=== PATIENT | male | born 1980 | race Caucasian/White ===

== ENCOUNTER 2017-05-30 10:19 | Emergency (ER) | payer SELFPAY ==
[2017-05-30] MEDS ORDERED: HYDROcodone/Acetaminophen 5/325 mg Tablet ONE (10:37)
--- NOTE | 2017-05-30 12:00 | RAD ---
LEFT KNEE FOUR VIEWS: History: Knee pain. Comparison: None. FINDINGS: No acute fracture or malalignment. No significant joint effusion. Enthesopathic changes of the anteri or superior margin of the patella. IMPRESSION: No acute fracture or malalignment. Given patient history, internal derangement is suspected. MRI is r ecommended. POS: [facility]
== END 2017-05-30 11:25 | disposition home or self-care (01) ==
LOC: SCSER 10:19
DX: S83.92XA Sprain of unspecified site of left knee, initial encounter (principal); E11.9 Type 2 diabetes mellitus without complications; F41.0 Panic disorder [episodic paroxysmal anxiety]; F43.10 Post-traumatic stress disorder, unspecified; F32.9 Major depressive disorder, single episode, unspecified; F17.210 Nicotine dependence, cigarettes, uncomplicated; Z79.899 Other long term (current) drug therapy; W17.2XXA Fall into hole, initial encounter

== ENCOUNTER 2017-10-27 05:09 | Emergency (ER) | payer SELFPAY ==
[2017-10-27] MEDS ORDERED: Ketorolac Tromethamine 30 MG/ML VIAL ONE (05:56)
== END 2017-10-27 06:17 | disposition home or self-care (01) ==
LOC: SCSER 05:09
DX: K02.9 Dental caries, unspecified (principal); F41.9 Anxiety disorder, unspecified; F32.9 Major depressive disorder, single episode, unspecified; F17.210 Nicotine dependence, cigarettes, uncomplicated
CPT/HCPCS: 96372; J1885

== ENCOUNTER 2017-10-27 16:50 | Emergency (ER) | payer SELFPAY ==
[2017-10-27] MEDS ORDERED: Promethazine HCl 25 MG/ML VIAL ONE (17:34)
[2017-10-27] MEDS ORDERED: Morphine 5 MG/ML SYRINGE ONE (17:34)
== END 2017-10-27 17:57 | disposition home or self-care (01) ==
LOC: SCSER 16:50
DX: K04.4 Acute apical periodontitis of pulpal origin (principal); F41.9 Anxiety disorder, unspecified; F32.9 Major depressive disorder, single episode, unspecified; F43.10 Post-traumatic stress disorder, unspecified; F41.0 Panic disorder [episodic paroxysmal anxiety]; F17.210 Nicotine dependence, cigarettes, uncomplicated; Z79.899 Other long term (current) drug therapy; Z79.891 Long term (current) use of opiate analgesic
CPT/HCPCS: 96372; J2270; J2550

== ENCOUNTER 2019-12-12 11:50 | Emergency (ER) | payer SELFPAY ==
[2019-12-12 12:39] LABS: #Basophils 0.1 thou/uL (0.0-0.2); #Eosinphils 0.2 thou/uL (0.0-0.7); #Lymphocytes 2.8 thou/uL (1.20-3.40); #Monocytes 0.8 thou/uL (0.11-0.59); #Neutrophils 8.7 thou/uL (1.40-6.50); %Basophils 1.1 % (0.0-1.0); %Eosinophils 1.9 % (0.0-10.0); %Lymphocytes 22.1 % (21.0-51.0); Hemoglobin 18.2 g/dL (14.0-18.0); Mean Corpuscular HGB CONC 35.1 g/dL (32.0-36.0); Mean Corpuscular Hemoglobin 31.5 pg (27.0-31.0); Mean Corpuscular Volume 89.8 fL (78.0-98.0); Mean Platelet Volume 10.2 fL (7.4-10.4); Platelet Count 208 thou/uL (130-400); Red Blood Cell (RBC) Count 5.77 mill/uL (4.70-6.10); White Blood Cell (WBC) Count 12.6 thou/uL (4.8-10.8)
[2019-12-12 13:00] LABS: ALT (SGPT) 20 U/L (8-55); AST (SGOT) 14 U/L (5-34); Albumin 4.9 g/dL (3.5-5.0); Alkaline Phosphatase 112 U/L (40-110); Anion Gap 15 mmol/L (10-20); BUN (Urea Nitrogen) 16 mg/dL (8.9-20.6); Bilirubin, Total 0.4 mg/dL (0.2-1.2); Calc. Creatinine Clearance 0 mL/min (70-130); Calcium 9.9 mg/dL (7.8-10.44); Carbon Dioxide 25 mmol/L (22-29); Chloride 98 mmol/L (98-107); Estimated GFR-MDRD 67; Globulin 3.3 g/dL (2.4-3.5); Glucose 354 mg/dL (70-105); Lipase 63 U/L (8-78); Phosphorus 3.3 mg/dL (2.3-4.7); Potassium 4.2 mmol/L (3.5-5.1); Protein, Total 8.2 g/dL (6.0-8.3); Sodium 134 mmol/L (136-145)
== END 2019-12-12 13:35 | disposition home or self-care (01) ==
LOC: ERS 11:50
DX: E11.9 Type 2 diabetes mellitus without complications (principal); F32.9 Major depressive disorder, single episode, unspecified; F41.0 Panic disorder [episodic paroxysmal anxiety]; F17.210 Nicotine dependence, cigarettes, uncomplicated; Z79.84 Long term (current) use of oral hypoglycemic drugs; Z79.899 Other long term (current) drug therapy
CPT/HCPCS: 36416; 80053; 82010; 83690; 83735; 84100; 85025; 96360

== ENCOUNTER 2020-07-07 06:58 | Emergency (ER) | payer BC ==
[2020-07-07 07:38] LABS: #Basophils 0.1 thou/uL (0.0-0.2); #Eosinphils 1.2 thou/uL (0.0-0.7); #Lymphocytes 1.9 thou/uL (1.20-3.40); #Monocytes 0.9 thou/uL (0.11-0.59); %Basophils 1.1 % (0.0-1.0); %Eosinophils 9.6 % (0.0-10.0); %Monocytes 7.1 % (0.0-10.0); %Neutrophils 66.2 % (42.0-75.0); Hemoglobin 16.9 g/dL (14.0-18.0); Mean Corpuscular Hemoglobin 31.2 pg (27.0-31.0); Mean Corpuscular Volume 91.6 fL (78.0-98.0); Platelet Count 217 thou/uL (130-400); RBC Distribution Width 11.9 % (11.5-14.5); Red Blood Cell (RBC) Count 5.43 mill/uL (4.70-6.10); White Blood Cell (WBC) Count 12.1 thou/uL (4.8-10.8)
[2020-07-07] MEDS ORDERED: Ketorolac Tromethamine 30 MG/ML VIAL ONE (07:53)
[2020-07-07 07:56] LABS: ALT (SGPT) 110 U/L (8-55); AST (SGOT) 100 U/L (5-34); Albumin 4.3 g/dL (3.5-5.0); Alkaline Phosphatase 244 U/L (40-110); Anion Gap 15 mmol/L (10-20); BUN (Urea Nitrogen) 14 mg/dL (8.9-20.6); Bilirubin, Total 1.1 mg/dL (0.2-1.2); Calc. Creatinine Clearance 0 mL/min (70-130); Calcium 9.1 mg/dL (7.8-10.44); Carbon Dioxide 25 mmol/L (22-29); Chloride 102 mmol/L (98-107); Globulin 2.9 g/dL (2.4-3.5); Glucose 261 mg/dL (70-105); Potassium 3.7 mmol/L (3.5-5.1); Protein, Total 7.2 g/dL (6.0-8.3); Sodium 138 mmol/L (136-145)
--- NOTE | 2020-07-07 08:06 | RAD ---
EXAM: Portable chest PROVIDED CLINICAL HISTORY: Cough COMPARISON: 10/24/2016 FINDINGS: Cardiac and mediastinal silhouette is within normal limits. No focal consolidation, pleural fluid or pneumothorax evident. IMPRESSION: No evidence for an acute cardiopulmonary process.
[2020-07-07 09:40] LABS: SARS-CoV-2 NAA Rapid Test Not Detected (NotDetected)
[2020-07-07 09:42] LABS: Bacteria/HPF None Seen HPF (None Seen); Bilirubin Negative (Negative); Blood, Urine Negative (Negative); Clarity Clear (Clear); Glucose, Urine (Dipstick) 70 mg/dL (Negative); Ketone, Urine 80 mg/dL (Negative); Leukocyte Negative Leu/uL (Negative); Nitrite Negative (Negative); Protein, Urine (Dipstick) 30 mg/dL (Neg-Trace); RBC/HPF 0-3 HPF (0-3); Specific Gravity, Urine 1.032 (1.002-1.036); Squamous Epithelial 0-3 HPF (0-3); Urobilinogen 3 mg/dL (Less than 2); WBC/HPF 0-3 HPF (0-3); pH, Urine 6.5 (5.0-9.0)
--- NOTE | 2020-07-07 11:01 | CT ---
CT Abdomen Pelvis W Con: 07/07/2020 10:05 AM CLINICAL INFORMATION: Fever and epigastric abdominal pain. Elevated LFTs COMPARISON: 07/25/2013 TECHNIQUE: Multiple contiguous axial images were obtained and a CT of the abdomen and pelvis with IV contrast. C oronal and sagittal reformats were performed. FINDINGS: Lower Chest: within normal limits. Abdomen: Liver: Diffuse fatty infiltration of the liver. Bile Ducts: Normal caliber. Gallbladder: Removed. Pancreas: within normal limits. Spleen: within normal limits. Adrenals: within normal limits. Kidneys: Stable subtle hypodensities in the left kidney are subcentimeter in size and too small to de finitely characterize but likely represent cysts. Pelvis: Reproductive Organs: No pelvic masses. Ureters: within normal limits. Bladder: within normal limits. Peritoneum: No ascites or free air, no fluid collection. Bowel: Normal caliber. Scattered diverticula in the colon. Mesentery and Retroperitoneum: No enlarged mesenteric or retroperitoneal lymph nodes. Vessels: Normal. Abdominal Wall: within normal limits. Bones: Within normal limits IMPRESSION: 1. Diverticulosis without evidence of acute diverticulitis 2. Likely small left renal cysts 2. Fatty liver
[2020-07-07] MEDS ORDERED: Iopamidol-370 76% 500 ML 1 ML ONE (14:21)
== END 2020-07-07 11:30 | disposition home or self-care (01) ==
LOC: ERS 06:58
DX: E11.9 Type 2 diabetes mellitus without complications (principal); N28.1 Cyst of kidney, acquired; R94.5 Abnormal results of liver function studies; Z20.822 Contact with and (suspected) exposure to COVID-19; F17.210 Nicotine dependence, cigarettes, uncomplicated
CPT/HCPCS: 0240U; 36415; 36416; 71045; 74177; 80053; 81003; 81015; 85025; 87086; 94760; 96374; J1885; Q9967

== ENCOUNTER 2020-07-20 08:38 | Inpatient (IN) | payer BC, OTHER ==
[2020-07-20] MEDS ORDERED: Ondansetron PF 4 MG/2 ML Vial ONE (08:42)
[2020-07-20 08:59] LABS: #Basophils 0.2 thou/uL (0.0-0.2); #Eosinphils 1.4 thou/uL (0.0-0.7); #Monocytes 1.3 thou/uL (0.11-0.59); #Neutrophils 11.5 thou/uL (1.40-6.50); %Basophils 0.9 % (0.0-1.0); %Eosinophils 7.2 % (0.0-10.0); %Lymphocytes 25.7 % (21.0-51.0); %Monocytes 6.7 % (0.0-10.0); %Neutrophils 59.5 % (42.0-75.0); Hemoglobin 17.4 g/dL (14.0-18.0); Mean Corpuscular HGB CONC 33.5 g/dL (32.0-36.0); Mean Corpuscular Hemoglobin 31.3 pg (27.0-31.0); Mean Corpuscular Volume 93.2 fL (78.0-98.0); Mean Platelet Volume 10.1 fL (7.4-10.4); Platelet Count 237 thou/uL (130-400); Red Blood Cell (RBC) Count 5.58 mill/uL (4.70-6.10); White Blood Cell (WBC) Count 19.3 thou/uL (4.8-10.8)
[2020-07-20 09:07] LABS: INR-International Normal Ratio 0.9; Prothrombin Time 12.7 sec (12.0-14.7)
[2020-07-20 09:12] LABS: PTT 18.7 sec (22.9-36.1)
[2020-07-20 09:24] LABS: ALT (SGPT) 47 U/L (8-55); AST (SGOT) 25 U/L (5-34); Albumin 4.5 g/dL (3.5-5.0); Alcohol Less than 10 mg/dL (Less than 10); Alkaline Phosphatase 139 U/L (40-110); Anion Gap 21 mmol/L (10-20); BUN (Urea Nitrogen) 15 mg/dL (8.9-20.6); Bilirubin, Total 0.4 mg/dL (0.2-1.2); Calc. Creatinine Clearance 0 mL/min (70-130); Calcium 9.8 mg/dL (7.8-10.44); Carbon Dioxide 17 mmol/L (22-29); Chloride 100 mmol/L (98-107); Globulin 3.2 g/dL (2.4-3.5); Glucose 330 mg/dL (70-105); Lipase 31 U/L (8-78); Potassium 4.1 mmol/L (3.5-5.1); Protein, Total 7.7 g/dL (6.0-8.3); Sodium 134 mmol/L (136-145)
[2020-07-20] MEDS ORDERED: Dextrose 50% Abboject 50 ML SYRINGE SLOW IVP PRN (09:26)
[2020-07-20] MEDS ORDERED: Dextrose 5% in Water 1,000 ML IV PRN (09:26)
[2020-07-20 09:31] LABS: Bacteria/HPF None Seen HPF (None Seen); Bilirubin Negative (Negative); Blood, Urine 2+ (Negative); Clarity Clear (Clear); Glucose, Urine (Dipstick) >=1000 mg/dL (Negative); Ketone, Urine 10 mg/dL (Negative); Leukocyte Negative Leu/uL (Negative); Nitrite Negative (Negative); Protein, Urine (Dipstick) 10 mg/dL (Neg-Trace); RBC/HPF Greater than 50 HPF (0-3); Specific Gravity, Urine 1.022 (1.002-1.036); Squamous Epithelial 0-3 HPF (0-3); Urobilinogen Normal mg/dL (Less than 2); WBC/HPF 0-3 HPF (0-3); pH, Urine 6.5 (5.0-9.0)
[2020-07-20] MEDS ORDERED: diphenhydrAMINE 25 MG CAP PO PRN (09:35)
[2020-07-20] MEDS ORDERED: diphenhydrAMINE 50 MG/ML VIAL IM PRN (09:35)
[2020-07-20] MEDS ORDERED: Promethazine HCl 25 MG/ML VIAL IM PRN (09:35)
[2020-07-20] MEDS ORDERED: Naloxone HCl 0.4 mg/ml Vial IV PRN (09:35)
[2020-07-20 09:43] LABS: Amphetamine Not Detected (NotDetected); Barbiturates Screen Not Detected (NotDetected); Benzodiazepine Screen Not Detected (NotDetected); Cocaine Metabolite Screen Not Detected (NotDetected); Medtox Control Line Valid? VALID (VALID); Medtox Reader # READER 4; Methadone Not Detected (NotDetected); Methamphetamine Not Detected (NotDetected); Opiate Screen Not Detected (NotDetected); Oxycodone Screen Not Detected (NotDetected); Phencyclidine (PCP) Not Detected (NotDetected); THC/Cannabinoid Screen Detected (NotDetected); Tricyclic Screen Not Detected (NotDetected)
[2020-07-20] MEDS ORDERED: Communication Order-Pharmacy FS SCH (09:45)
[2020-07-20] MEDS ORDERED: HYDROmorphone 0.5 MG/0.5 ML SYRINGE ONE ×2 (10:05→11:20)
[2020-07-20] MEDS ORDERED: Iopamidol-370 76% 500 ML 1 ML ONE (10:36)
[2020-07-20] MEDS ORDERED: Ketamine 50 MG/ML (10ML VIAL) ONE (11:31)
[2020-07-20] MEDS ORDERED: Fentanyl 100 MCG/2 ML VIAL ONE (11:31)
[2020-07-20] MEDS ORDERED: Morphine 2 MG/ML VIAL ONE (12:49)
[2020-07-20] MEDS: HYDROmorphone 10 mg/100 ml CADD IVPB PRN (14:10)
[2020-07-20] MEDS ORDERED: Clindamycin/D5W 900 MG in Premix Bag 1 BAG IVPB SCH (14:45)
[2020-07-20 14:52] VITALS: BMI 30.9
[2020-07-20] MEDS: Ondansetron PF 4 MG/2 ML Vial IVP PRN (16:44)
[2020-07-20] MEDS: Ketorolac Tromethamine 30 MG/ML VIAL IVP SCH ×3 (17:52→22:50)
[2020-07-20] MEDS: Famotidine/PF 20 mg/2ml Vial SLOW IVP SCH (19:37)
[2020-07-20] MEDS: Zolpidem Tartrate 5 MG TAB PO PRN (19:37)
[2020-07-20] MEDS: HumaLOG 300 UNITS/3 ML VIAL SC PRN (19:44)
[2020-07-20] MEDS: diphenhydrAMINE 50 MG/ML VIAL IVP PRN ×2 (20:27→23:49)
[2020-07-21 05:17] LABS: #Basophils 0.1 thou/uL (0.0-0.2); #Eosinphils 0.5 thou/uL (0.0-0.7); #Lymphocytes 2.1 thou/uL (1.20-3.40); #Monocytes 1.4 thou/uL (0.11-0.59); %Basophils 0.4 % (0.0-1.0); %Eosinophils 3.3 % (0.0-10.0); %Lymphocytes 14.9 % (21.0-51.0); %Monocytes 9.8 % (0.0-10.0); %Neutrophils 71.6 % (42.0-75.0); Hemoglobin 15.6 g/dL (14.0-18.0); Mean Corpuscular HGB CONC 32.4 g/dL (32.0-36.0); Mean Corpuscular Hemoglobin 30.4 pg (27.0-31.0); Mean Corpuscular Volume 93.7 fL (78.0-98.0); Platelet Count 168 thou/uL (130-400); Red Blood Cell (RBC) Count 5.15 mill/uL (4.70-6.10)
[2020-07-21 05:28] LABS: Phosphorus 3.2 mg/dL (2.3-4.7)
[2020-07-21 05:32] LABS: Anion Gap 16 mmol/L (10-20); BUN (Urea Nitrogen) 11 mg/dL (8.9-20.6); Calc. Creatinine Clearance 165 mL/min (70-130); Calcium 8.8 mg/dL (7.8-10.44); Carbon Dioxide 18 mmol/L (22-29); Chloride 106 mmol/L (98-107); Glucose 190 mg/dL (70-105); Magnesium 1.7 mg/dL (1.6-2.6); Potassium 3.9 mmol/L (3.5-5.1); Sodium 136 mmol/L (136-145)
[2020-07-21] MEDS: Ketorolac Tromethamine 30 MG/ML VIAL IVP SCH ×4 (05:48→23:12)
[2020-07-21 06:00] LABS: SARS-CoV-2 PCR by NAA Not Detected (NotDetected)
[2020-07-21] MEDS: diphenhydrAMINE 50 MG/ML VIAL IVP PRN ×4 (06:13→21:04)
[2020-07-21] MEDS: Famotidine/PF 20 mg/2ml Vial SLOW IVP SCH ×2 (08:56→19:56)
[2020-07-21] MEDS ORDERED: PROPOFOL 200 MG/20 ML VIAL ONE (09:09)
[2020-07-21] MEDS ORDERED: Ondansetron PF 4 MG/2 ML Vial ONE (09:09)
[2020-07-21] MEDS ORDERED: Lidocaine 1% PF 5 ML VIAL ONE (09:09)
[2020-07-21] MEDS ORDERED: Rocuronium Bromide 10 MG/ML (10ML VIAL) ONE (09:09)
[2020-07-21] MEDS ORDERED: Dexamethasone 20 MG/5 ML VIAL ONE (09:09)
[2020-07-21] MEDS ORDERED: Esmolol 100 MG/10 ML VIAL ONE (09:09)
[2020-07-21] MEDS ORDERED: Ketorolac Tromethamine 30 MG/ML VIAL ONE (09:09)
[2020-07-21] MEDS: Senokot S 8.6-50 MG TAB PO SCH ×2 (09:26→19:55)
[2020-07-21] MEDS: Polyethylene Glycol 3350 17 GM Packet PO SCH (09:26)
[2020-07-21] MEDS ORDERED: Fentanyl 100 MCG/2 ML VIAL ONE ×4 (11:48→15:35)
[2020-07-21] MEDS ORDERED: Levofloxacin 500 mg/D5W 100 ml Premix Bag ONE (12:00)
[2020-07-21] MEDS ORDERED: Clindamycin/D5W 900 mg/50 ml Premix Bag ONE (12:15)
[2020-07-21] MEDS ORDERED: Midazolam HCl 2 mg/2 ml Vial ONE (12:20)
[2020-07-21] MEDS ORDERED: Dexmedetomidine 200 MCG/2 ML VIAL ONE (12:25)
[2020-07-21] MEDS ORDERED: HYDROmorphone 2 MG/ML VIAL ONE (13:18)
[2020-07-21] MEDS ORDERED: SUGAMMADEX SODIUM 200 MG/2 ML VIAL ONE (13:43)
[2020-07-21] MEDS ORDERED: Ondansetron HCl/PF 4 MG/2 ML Vial IVP PRN (14:30)
[2020-07-21] MEDS ORDERED: Promethazine HCl 25 MG/ML VIAL IM PRN (14:30)
[2020-07-21] MEDS ORDERED: HYDROmorphone 2 MG/ML VIAL SLOW IVP PRN (14:30)
[2020-07-21] MEDS ORDERED: Promethazine HCl 25 MG/ML VIAL SLOW IVP PRN (14:30)
[2020-07-21] MEDS ORDERED: HYDROmorphone 0.5 MG/0.5 ML SYRINGE ONE (15:17)
[2020-07-21] MEDS: HYDROmorphone 10 mg/100 ml CADD IVPB PRN (17:32)
[2020-07-21] MEDS: HumaLOG 300 UNITS/3 ML VIAL SC PRN ×2 (17:33→21:00)
[2020-07-21] MEDS: Clindamycin/D5W 900 MG in Premix Bag 1 BAG IVPB SCH (19:56)
[2020-07-22] MEDS: diphenhydrAMINE 50 MG/ML VIAL IVP PRN ×5 (01:21→20:41)
[2020-07-22] MEDS: Ketorolac Tromethamine 30 MG/ML VIAL IVP SCH ×2 (04:48→11:56)
[2020-07-22] MEDS: Clindamycin/D5W 900 MG in Premix Bag 1 BAG IVPB SCH ×2 (04:48→11:55)
[2020-07-22] MEDS: HumaLOG 300 UNITS/3 ML VIAL SC PRN ×3 (05:47→17:00)
[2020-07-22] MEDS: HYDROmorphone 10 mg/100 ml CADD IVPB PRN ×2 (07:59→20:37)
[2020-07-22] MEDS: Senokot S 8.6-50 MG TAB PO SCH ×2 (08:03→20:00)
[2020-07-22] MEDS: Famotidine/PF 20 mg/2ml Vial SLOW IVP SCH (08:04)
[2020-07-22 09:20] LABS: #Basophils 0.1 thou/uL (0.0-0.2); #Eosinphils 0.3 thou/uL (0.0-0.7); #Lymphocytes 2.2 thou/uL (1.20-3.40); #Monocytes 1.7 thou/uL (0.11-0.59); #Neutrophils 11.5 thou/uL (1.40-6.50); %Basophils 0.4 % (0.0-1.0); %Eosinophils 2.2 % (0.0-10.0); %Lymphocytes 14.1 % (21.0-51.0); %Monocytes 10.6 % (0.0-10.0); %Neutrophils 72.8 % (42.0-75.0); Hemoglobin 13.7 g/dL (14.0-18.0); Mean Corpuscular HGB CONC 33.7 g/dL (32.0-36.0); Mean Corpuscular Hemoglobin 31.8 pg (27.0-31.0); Mean Corpuscular Volume 94.4 fL (78.0-98.0); Mean Platelet Volume 9.6 fL (7.4-10.4); Platelet Count 168 thou/uL (130-400); RBC Distribution Width 11.8 % (11.5-14.5); Red Blood Cell (RBC) Count 4.31 mill/uL (4.70-6.10); White Blood Cell (WBC) Count 15.7 thou/uL (4.8-10.8)
[2020-07-22 09:37] LABS: Anion Gap 13 mmol/L (10-20); BUN (Urea Nitrogen) 17 mg/dL (8.9-20.6); Calc. Creatinine Clearance 167 mL/min (70-130); Calcium 8.9 mg/dL (7.8-10.44); Carbon Dioxide 26 mmol/L (22-29); Chloride 105 mmol/L (98-107); Glucose 133 mg/dL (70-105); Phosphorus 2.9 mg/dL (2.3-4.7); Potassium 4.1 mmol/L (3.5-5.1); Sodium 140 mmol/L (136-145)
[2020-07-22] MEDS ORDERED: Morphine 4 MG/ML VIAL SLOW IVP SCH (10:00)
[2020-07-22] MEDS: Enoxaparin Sodium 40 MG/0.4 ML SYRINGE SC SCH (10:26)
[2020-07-22] MEDS: Gabapentin 300 MG CAP PO SCH ×3 (10:26→20:00)
[2020-07-22] MEDS: Insulin Glargine 10 UNITS in Pre-Filled Syringe 1 EACH SC SCH (10:27)
[2020-07-22] MEDS: Polyethylene Glycol 3350 17 GM Packet PO SCH (10:28)
[2020-07-22] MEDS: Acetaminophen 500 MG TAB PO SCH ×3 (11:55→23:04)
[2020-07-22] MEDS: traMADol HCl 50 MG TAB PO SCH ×3 (11:56→23:04)
[2020-07-22] MEDS: Ondansetron PF 4 MG/2 ML Vial IVP PRN (18:41)
[2020-07-22] MEDS: Zolpidem Tartrate 5 MG TAB PO PRN (20:00)
[2020-07-23] MEDS: traMADol HCl 50 MG TAB PO SCH ×3 (05:01→16:40)
[2020-07-23] MEDS: Acetaminophen 500 MG TAB PO SCH ×2 (05:01→10:59)
[2020-07-23] MEDS: Enoxaparin Sodium 40 MG/0.4 ML SYRINGE SC SCH (08:42)
[2020-07-23] MEDS: Polyethylene Glycol 3350 17 GM Packet PO SCH (08:42)
[2020-07-23] MEDS: Insulin Glargine 10 UNITS in Pre-Filled Syringe 1 EACH SC SCH (08:42)
[2020-07-23] MEDS: Senokot S 8.6-50 MG TAB PO SCH ×2 (08:43→20:34)
[2020-07-23] MEDS: Gabapentin 300 MG CAP PO SCH ×3 (08:44→20:34)
[2020-07-23] MEDS: PARoxetine 20 MG TAB PO SCH (08:44)
[2020-07-23] MEDS: Ondansetron PF 4 MG/2 ML Vial IVP PRN (09:02)
[2020-07-23] MEDS: Cyclobenzaprine 10 MG TAB PO PRN ×2 (11:00→20:33)
[2020-07-23] MEDS: HumaLOG 300 UNITS/3 ML VIAL SC PRN ×2 (12:41→21:13)
[2020-07-23] MEDS: Ibuprofen 600 MG TAB PO SCH ×2 (13:26→22:31)
[2020-07-23] MEDS: Acetaminophen/Codeine 30-300mg Tablet PO PRN ×3 (13:26→22:32)
[2020-07-23] MEDS: Acetaminophen 325 MG TAB PO SCH (16:39)
[2020-07-23] MEDS: Zolpidem Tartrate 5 MG TAB PO PRN (20:36)
[2020-07-24] MEDS: traMADol HCl 50 MG TAB PO SCH ×5 (00:37→23:41)
[2020-07-24] MEDS: Acetaminophen 325 MG TAB PO SCH ×5 (00:37→23:41)
[2020-07-24] MEDS: Ibuprofen 600 MG TAB PO SCH ×3 (05:27→21:28)
[2020-07-24] MEDS: Acetaminophen/Codeine 30-300mg Tablet PO PRN (08:43)
[2020-07-24] MEDS: Cyclobenzaprine 10 MG TAB PO PRN (08:43)
[2020-07-24] MEDS: Enoxaparin Sodium 40 MG/0.4 ML SYRINGE SC SCH (08:44)
[2020-07-24] MEDS: Gabapentin 300 MG CAP PO SCH ×3 (08:45→20:39)
[2020-07-24] MEDS: Senokot S 8.6-50 MG TAB PO SCH ×2 (08:45→20:48)
[2020-07-24] MEDS: Polyethylene Glycol 3350 17 GM Packet PO SCH (08:45)
[2020-07-24] MEDS: Insulin Glargine 10 UNITS in Pre-Filled Syringe 1 EACH SC SCH (08:46)
[2020-07-24] MEDS: PARoxetine 20 MG TAB PO SCH (08:46)
[2020-07-24 08:54] LABS: #Basophils 0.1 thou/uL (0.0-0.2); #Eosinphils 1.2 thou/uL (0.0-0.7); #Lymphocytes 2.2 thou/uL (1.20-3.40); #Monocytes 0.9 thou/uL (0.11-0.59); #Neutrophils 6.5 thou/uL (1.40-6.50); %Basophils 0.7 % (0.0-1.0); %Eosinophils 11.1 % (0.0-10.0); %Lymphocytes 20.3 % (21.0-51.0); %Monocytes 8.2 % (0.0-10.0); %Neutrophils 59.6 % (42.0-75.0); Hemoglobin 13.2 g/dL (14.0-18.0); Mean Corpuscular HGB CONC 34.3 g/dL (32.0-36.0); Mean Corpuscular Hemoglobin 32.1 pg (27.0-31.0); Mean Corpuscular Volume 93.6 fL (78.0-98.0); Mean Platelet Volume 9.2 fL (7.4-10.4); Platelet Count 199 thou/uL (130-400); RBC Distribution Width 11.6 % (11.5-14.5); Red Blood Cell (RBC) Count 4.12 mill/uL (4.70-6.10); White Blood Cell (WBC) Count 10.9 thou/uL (4.8-10.8)
[2020-07-24 09:01] LABS: Hemoglobin A1c 9.8 % (4.0-6.0)
[2020-07-24 09:10] LABS: Anion Gap 13 mmol/L (10-20); BUN (Urea Nitrogen) 15 mg/dL (8.9-20.6); Calc. Creatinine Clearance 190 mL/min (70-130); Calcium 8.7 mg/dL (7.8-10.44); Carbon Dioxide 23 mmol/L (22-29); Chloride 107 mmol/L (98-107); Glucose 137 mg/dL (70-105); Sodium 139 mmol/L (136-145)
[2020-07-24] MEDS: HumaLOG 300 UNITS/3 ML VIAL SC PRN ×3 (12:12→21:27)
[2020-07-24] MEDS: Acetaminophen/Codeine 30-300mg Tablet PO SCH ×3 (12:16→23:42)
[2020-07-24] MEDS ORDERED: Melatonin 3 MG TAB PO PRN (15:11)
[2020-07-24] MEDS: Zolpidem Tartrate 5 MG TAB PO PRN (21:28)
[2020-07-25] MEDS: Acetaminophen 325 MG TAB PO SCH ×3 (06:30→17:10)
[2020-07-25] MEDS: Ibuprofen 600 MG TAB PO SCH ×4 (06:30→21:57)
[2020-07-25] MEDS: Acetaminophen/Codeine 30-300mg Tablet PO SCH ×3 (06:30→17:11)
[2020-07-25] MEDS: traMADol HCl 50 MG TAB PO SCH ×3 (06:31→17:10)
[2020-07-25] MEDS: HumaLOG 300 UNITS/3 ML VIAL SC PRN ×2 (06:34→11:19)
[2020-07-25] MEDS ORDERED: metFORMIN 500 MG TAB PO SCH (08:48)
[2020-07-25] MEDS: Polyethylene Glycol 3350 17 GM Packet PO SCH (08:58)
[2020-07-25] MEDS: Enoxaparin Sodium 40 MG/0.4 ML SYRINGE SC SCH (08:58)
[2020-07-25] MEDS: Senokot S 8.6-50 MG TAB PO SCH ×2 (08:58→20:29)
[2020-07-25] MEDS: Insulin Glargine 10 UNITS in Pre-Filled Syringe 1 EACH SC SCH (08:58)
[2020-07-25] MEDS: Gabapentin 300 MG CAP PO SCH ×3 (08:59→20:26)
[2020-07-25] MEDS: PARoxetine 20 MG TAB PO SCH (08:59)
[2020-07-25] MEDS: Insulin Glargine 15 UNITS in Pre-Filled Syringe 1 EACH SC SCH (11:12)
[2020-07-25] MEDS: metFORMIN 500 MG TAB PO SCH (17:12)
[2020-07-25] MEDS: Cyclobenzaprine 10 MG TAB PO PRN (19:12)
[2020-07-25] MEDS: Ondansetron PF 4 MG/2 ML Vial IVP PRN (19:12)
[2020-07-25] MEDS: Zolpidem Tartrate 5 MG TAB PO PRN (20:28)
[2020-07-26] MEDS: Acetaminophen/Codeine 30-300mg Tablet PO SCH ×2 (00:15→05:41)
[2020-07-26] MEDS: traMADol HCl 50 MG TAB PO SCH ×4 (00:45→17:52)
[2020-07-26] MEDS: Acetaminophen 325 MG TAB PO SCH ×2 (00:46→05:42)
[2020-07-26] MEDS: Ibuprofen 600 MG TAB PO SCH ×3 (05:41→23:38)
[2020-07-26] MEDS: PARoxetine 20 MG TAB PO SCH (09:27)
[2020-07-26] MEDS: Senokot S 8.6-50 MG TAB PO SCH ×2 (09:27→20:00)
[2020-07-26] MEDS: Gabapentin 300 MG CAP PO SCH ×3 (09:27→20:04)
[2020-07-26] MEDS: Enoxaparin Sodium 40 MG/0.4 ML SYRINGE SC SCH (09:28)
[2020-07-26] MEDS: metFORMIN 500 MG TAB PO SCH (09:28)
[2020-07-26] MEDS: Insulin Glargine 15 UNITS in Pre-Filled Syringe 1 EACH SC SCH (09:28)
[2020-07-26] MEDS: Polyethylene Glycol 3350 17 GM Packet PO SCH (09:29)
[2020-07-26] MEDS: Ondansetron PF 4 MG/2 ML Vial IVP PRN (10:56)
[2020-07-26] MEDS ORDERED: Scopolamine 1.5 mg/72 hour Patch TD SCH (11:00)
[2020-07-26] MEDS: Acetaminophen 500 MG TAB PO SCH ×2 (11:06→17:52)
[2020-07-26] MEDS: HumaLOG 300 UNITS/3 ML VIAL SC PRN ×3 (11:33→20:03)
[2020-07-26 11:37] LABS: #Basophils 0.1 thou/uL (0.0-0.2); #Eosinphils 0.7 thou/uL (0.0-0.7); #Lymphocytes 1.8 thou/uL (1.20-3.40); #Monocytes 1.2 thou/uL (0.11-0.59); #Neutrophils 9.6 thou/uL (1.40-6.50); %Basophils 0.4 % (0.0-1.0); %Eosinophils 5.4 % (0.0-10.0); %Lymphocytes 13.2 % (21.0-51.0); %Monocytes 9.2 % (0.0-10.0); %Neutrophils 71.9 % (42.0-75.0); Hemoglobin 13.5 g/dL (14.0-18.0); Mean Corpuscular HGB CONC 31.8 g/dL (32.0-36.0); Mean Corpuscular Volume 94.3 fL (78.0-98.0); Mean Platelet Volume 9.2 fL (7.4-10.4); Platelet Count 247 thou/uL (130-400); RBC Distribution Width 11.7 % (11.5-14.5); Red Blood Cell (RBC) Count 4.52 mill/uL (4.70-6.10); White Blood Cell (WBC) Count 13.3 thou/uL (4.8-10.8)
[2020-07-26] MEDS: Zolpidem Tartrate 5 MG TAB PO PRN (20:04)
[2020-07-27] MEDS: Acetaminophen 500 MG TAB PO SCH ×5 (00:04→23:54)
[2020-07-27] MEDS: traMADol HCl 50 MG TAB PO SCH ×5 (00:05→23:54)
[2020-07-27] MEDS: Ibuprofen 600 MG TAB PO SCH ×3 (05:51→23:25)
[2020-07-27] MEDS: Gabapentin 300 MG CAP PO SCH ×3 (08:35→19:45)
[2020-07-27] MEDS: PARoxetine 20 MG TAB PO SCH (08:35)
[2020-07-27] MEDS: Enoxaparin Sodium 40 MG/0.4 ML SYRINGE SC SCH (08:36)
[2020-07-27] MEDS: Polyethylene Glycol 3350 17 GM Packet PO SCH (08:39)
[2020-07-27] MEDS: Senokot S 8.6-50 MG TAB PO SCH ×2 (08:39→20:09)
[2020-07-27] MEDS: Insulin Glargine 20 UNITS in Pre-Filled Syringe 1 EACH SC SCH (09:50)
[2020-07-27] MEDS: HumaLOG 300 UNITS/3 ML VIAL SC PRN ×2 (11:44→19:49)
[2020-07-27] MEDS: Zolpidem Tartrate 5 MG TAB PO PRN (19:45)
[2020-07-28] MEDS: traMADol HCl 50 MG TAB PO SCH ×3 (06:14→17:45)
[2020-07-28] MEDS: Acetaminophen 500 MG TAB PO SCH ×3 (06:15→17:45)
[2020-07-28] MEDS: Ibuprofen 600 MG TAB PO SCH ×2 (06:15→14:04)
[2020-07-28] MEDS: Polyethylene Glycol 3350 17 GM Packet PO SCH (09:06)
[2020-07-28] MEDS: Senokot S 8.6-50 MG TAB PO SCH (09:06)
[2020-07-28] MEDS: Gabapentin 300 MG CAP PO SCH ×2 (09:07→14:03)
[2020-07-28] MEDS: PARoxetine 20 MG TAB PO SCH (09:07)
[2020-07-28] MEDS: Enoxaparin Sodium 40 MG/0.4 ML SYRINGE SC SCH (09:07)
[2020-07-28] MEDS: Insulin Glargine 20 UNITS in Pre-Filled Syringe 1 EACH SC SCH (09:48)
[2020-07-28] MEDS: HumaLOG 300 UNITS/3 ML VIAL SC PRN ×2 (11:51→17:46)
[2020-07-28 20:34] VITALS: BP 119/72; TEMP 97.6
[2020-07-29] MEDS ORDERED: Lantus 1000 UNITS/10 ML VIAL SC SCH (09:00)
== END 2020-07-28 19:52 | DRG 516 ==
LOC: ERS 08:38 → ERHOLD 09:31 → SURG A 13:49
PROVIDERS: ADMIT Surgery; ATTEND Surgery
PROC: 0SH734Z Insertion of Internal Fixation Device into Right Sacroiliac Joint, Percutaneous Approach (ICD-10-PCS; principal; 2020-07-21)
DX: S32.15XA Type 2 fracture of sacrum, initial encounter for closed fracture (principal); S32.82XA Multiple fractures of pelvis without disruption of pelvic ring, initial encounter for closed fracture; Z20.822 Contact with and (suspected) exposure to COVID-19; X58.XXXA Exposure to other specified factors, initial encounter; S32.19XA Other fracture of sacrum, initial encounter for closed fracture; S30.0XXA Contusion of lower back and pelvis, initial encounter; F41.9 Anxiety disorder, unspecified; F32.9 Major depressive disorder, single episode, unspecified; F43.10 Post-traumatic stress disorder, unspecified; E11.65 Type 2 diabetes mellitus with hyperglycemia; F17.210 Nicotine dependence, cigarettes, uncomplicated; Z88.1 Allergy status to other antibiotic agents; Z88.0 Allergy status to penicillin; Z88.5 Allergy status to narcotic agent; Z79.4 Long term (current) use of insulin; Z90.49 Acquired absence of other specified parts of digestive tract
CPT/HCPCS: 36415; 36416; 36430; 71045; 71046; 71260; 72125; 72170; 72190; 74177; 76000; 76377; 80048; 80053; 80306; 80307; 81003; 81015; 82550; 83036; 83690; 83735; 84100; 85025; 85610; 85730; 86850; 86900; 86901; 87635; 93005; C1713; C1769; G0390; J0690; J1100; J1170; J1200; J1650; J1815; J1885; J1956; J2250; J2270; J2405; J2704; J3010; J3490; Q9967; S0028; U0003; U0005

== ENCOUNTER 2020-10-25 14:07 | Outpatient (CLI) | payer OTHER | END 2020-10-25 14:08 | disposition home or self-care (01) | LOC: BICCT 14:07 | PROVIDERS: ATTEND Physician Assistant Surgical | DX: S32.810D Multiple fractures of pelvis with stable disruption of pelvic ring, subsequent encounter for fracture with routine healing (principal); S32.1 Fracture of sacrum | CPT/HCPCS: 72192 ==

== ENCOUNTER 2021-02-01 08:06 | Outpatient (CLI) | payer BC ==
[2021-02-01 23:09] LABS: SARS-CoV-2 PCR by NAA Not Detected (NotDetected)
== END 2021-02-01 08:07 | disposition home or self-care (01) ==
LOC: LABBT 08:06
PROVIDERS: ATTEND Orthopaedic Surgery
DX: Z01.812 Encounter for preprocedural laboratory examination (principal); T85.848A Pain due to other internal prosthetic devices, implants and grafts, initial encounter; Z20.822 Contact with and (suspected) exposure to COVID-19
CPT/HCPCS: U0003; U0005

== ENCOUNTER 2021-02-03 10:10 | Day surgery (SDC) | payer OTHER ==
[2021-02-01 13:30] VITALS: BMI 26.9
[2021-02-03] MEDS ORDERED: Fentanyl 100 MCG/2 ML VIAL ONE ×5 (12:28→14:45)
[2021-02-03] MEDS ORDERED: PROPOFOL 200 MG/20 ML VIAL ONE (12:49)
[2021-02-03] MEDS ORDERED: Glycopyrrolate 0.2 MG/ML 5 ML SYRINGE ONE (12:49)
[2021-02-03] MEDS ORDERED: Succinylcholine 200 MG/10 ml SYRINGE FS ONE (12:49)
[2021-02-03] MEDS ORDERED: Lidocaine 1% PF 5 ML VIAL ONE (12:49)
[2021-02-03] MEDS ORDERED: Ondansetron PF 4 MG/2 ML Vial ONE (12:49)
[2021-02-03] MEDS ORDERED: Dexamethasone 20 MG/5 ML VIAL ONE (12:49)
[2021-02-03] MEDS ORDERED: EPINEPHrine 1 MG/ML AMP ONE (13:30)
[2021-02-03] MEDS ORDERED: Bupivacaine PF 0.5% 30 ML VIAL ONE (13:30)
[2021-02-03] MEDS ORDERED: HYDROcodone/Acetaminophen 5/325 mg Tablet ONE (15:30)
== END 2021-02-03 16:15 | disposition home or self-care (01) ==
LOC: SDC 10:10
PROVIDERS: ATTEND Orthopaedic Surgery
PROC: 0SP304Z Removal of Internal Fixation Device from Lumbosacral Joint, Open Approach (ICD-10-PCS; principal; 2021-02-03)
DX: T84.226A Displacement of internal fixation device of vertebrae, initial encounter (principal); T84.84XA Pain due to internal orthopedic prosthetic devices, implants and grafts, initial encounter; E11.9 Type 2 diabetes mellitus without complications; F17.210 Nicotine dependence, cigarettes, uncomplicated; Z79.84 Long term (current) use of oral hypoglycemic drugs; Z79.899 Other long term (current) drug therapy
CPT/HCPCS: 72170; 76000; 87070; 87186; 87205; J0171; J0690; J1100; J2405; J2704; J3010; S0020

== ENCOUNTER 2021-02-10 14:28 | Outpatient (CLI) | payer OTHER | END 2021-02-10 14:29 | disposition home or self-care (01) | LOC: BICCT 14:28 | PROVIDERS: ATTEND Orthopaedic Surgery | DX: S32.810D Multiple fractures of pelvis with stable disruption of pelvic ring, subsequent encounter for fracture with routine healing (principal) | CPT/HCPCS: 72192 ==

== ENCOUNTER 2021-05-09 13:37 | Emergency (ER) | payer SELFPAY ==
[2021-05-09 22:29] LABS: SARS-CoV-2 PCR by NAA Not Detected (NotDetected)
== END 2021-05-09 14:44 | disposition home or self-care (01) ==
LOC: ERS 13:37
DX: B34.9 Viral infection, unspecified (principal); Z20.822 Contact with and (suspected) exposure to COVID-19; E11.9 Type 2 diabetes mellitus without complications; F17.210 Nicotine dependence, cigarettes, uncomplicated
CPT/HCPCS: 99284; U0003; U0005

== ENCOUNTER 2021-07-26 16:33 | Inpatient (IN) | payer BC, OTHER, SELFPAY ==
[2021-07-26] MEDS ORDERED: cefTRIAXone\\ROCEPHIN 2 GM VIAL ONE (17:06)
[2021-07-26 17:12] LABS: #Eosinphils 0.2 thou/uL (0.0-0.7); #Lymphocytes 1.1 thou/uL (1.20-3.40); #Monocytes 1.3 thou/uL (0.11-0.59); %Basophils 0.2 % (0.0-1.0); %Eosinophils 2.1 % (0.0-10.0); %Lymphocytes 10.4 % (21.0-51.0); %Neutrophils 75.4 % (42.0-75.0); Hemoglobin 15.5 g/dL (14.0-18.0); Mean Corpuscular HGB CONC 34.1 g/dL (32.0-36.0); Mean Corpuscular Hemoglobin 31.2 pg (27.0-31.0); Mean Corpuscular Volume 91.7 fL (78.0-98.0); Mean Platelet Volume 8.5 fL (7.4-10.4); Platelet Count 287 thou/uL (130-400); Red Blood Cell (RBC) Count 4.96 mill/uL (4.70-6.10); White Blood Cell (WBC) Count 10.5 thou/uL (4.8-10.8)
[2021-07-26 17:26] LABS: ALT (SGPT) 42 U/L (8-55); AST (SGOT) 32 U/L (5-34); Albumin 4.3 g/dL (3.5-5.0); Alkaline Phosphatase 126 U/L (40-110); Anion Gap 18 mmol/L (10-20); BUN (Urea Nitrogen) 5 mg/dL (8.9-20.6); Bilirubin, Total 0.6 mg/dL (0.2-1.2); Calc. Creatinine Clearance 0 mL/min (70-130); Calcium 9.8 mg/dL (7.8-10.44); Carbon Dioxide 18 mmol/L (22-29); Chloride 101 mmol/L (98-107); Globulin 3.1 g/dL (2.4-3.5); Glucose 278 mg/dL (70-105); Potassium 3.7 mmol/L (3.5-5.1); Protein, Total 7.4 g/dL (6.0-8.3); Sodium 133 mmol/L (136-145)
[2021-07-26] MEDS ORDERED: Midazolam HCl 2 mg/2 ml Vial ONE (17:40)
[2021-07-26 18:03] LABS: PTT 28.5 sec (22.9-36.1); Prothrombin Time 12.8 sec (12.0-14.7)
[2021-07-26 18:34] LABS: Bilirubin Negative (Negative); Blood, Urine Negative (Negative); Clarity Clear (Clear); Glucose, Urine (Dipstick) Greater than 1000 mg/dL (Negative); Ketone, Urine Negative (Negative); Leukocyte Negative Leu/uL (Negative); Nitrite Negative (Negative); Protein, Urine (Dipstick) Negative (Neg-Trace); Urobilinogen Normal mg/dL (Less than 2); pH, Urine 6.5 (5.0-9.0)
[2021-07-26] MEDS ORDERED: Morphine 4 MG/ML VIAL ONE (20:02)
[2021-07-26] MEDS ORDERED: Ondansetron PF 4 MG/2 ML Vial ONE (21:02)
[2021-07-26 23:41] VITALS: BMI 28.5
[2021-07-27] MEDS ORDERED: HYDROcodone/Acetaminophen 10/325 mg Tablet PO SCH (00:05)
[2021-07-27 02:11] LABS: SARS-CoV-2 NAA Rapid Test Not Detected (NotDetected)
[2021-07-27] MEDS ORDERED: Acetaminophen 650 MG Suppository PR PRN (03:20)
[2021-07-27] MEDS: Acetaminophen 325 MG TAB PO PRN ×3 (03:31→23:22)
[2021-07-27] MEDS ORDERED: VANCOMYCIN 2 GRAM/400 ML BAG 2 GM in Premix Bag 1 BAG IVPB SCH (04:15)
[2021-07-27] MEDS ORDERED: Piperacillin/Tazobactam 3.375 GM in Sodium Chloride 0.9% 100 ML IVPB SCH (04:15)
[2021-07-27] MEDS ORDERED: Sodium Chloride 0.9% 1,000 ML IV SCH (04:15)
[2021-07-27] MEDS: Sodium Chloride 0.9% 1,000 ML IV SCH ×2 (04:28→13:58)
[2021-07-27] MEDS ORDERED: HumaLOG 300 UNITS/3 ML VIAL SC PRN (05:09)
[2021-07-27] MEDS ORDERED: Dextrose 50% Abboject 50 ML SYRINGE SLOW IVP PRN (05:09)
[2021-07-27] MEDS ORDERED: Dextrose 5% in Water 1,000 ML IV PRN (05:09)
[2021-07-27 06:08] LABS: Lactic Acid 1.2 mmol/L (0.5-2.2)
[2021-07-27] MEDS: Morphine 4 MG/ML VIAL SLOW IVP PRN ×2 (08:45→21:08)
[2021-07-27] MEDS: Piperacillin/Tazobactam 3.375 GM in Sodium Chloride 0.9% 100 ML IVPB SCH ×2 (08:49→17:05)
[2021-07-27] MEDS ORDERED: VANCOMYCIN 1.25 GM/250 ML BAG 1.25 GM in Premix Bag 1 BAG IVPB SCH (09:00)
[2021-07-27] MEDS ORDERED: FLU VACC QS2021-22(6MOS UP)/PF 60 MCG/0.5 ML SYRINGE IM ONE (09:00)
[2021-07-27] MEDS: HYDROcodone/Acetaminophen 10/325 mg Tablet PO PRN ×2 (10:53→17:06)
[2021-07-27] MEDS: Ondansetron PF 4 MG/2 ML Vial IVP PRN ×2 (10:54→17:56)
[2021-07-27] MEDS: HumaLOG 300 UNITS/3 ML VIAL SC PRN ×2 (11:45→17:57)
[2021-07-27] MEDS: Vancomycin 1.5 GRAM/300 ML BAG 1.5 GM in Premix Bag 1 BAG IVPB SCH ×2 (13:57→21:37)
[2021-07-27] MEDS: Lantus 1000 UNITS/10 ML VIAL SC SCH (21:07)
[2021-07-28] MEDS: Piperacillin/Tazobactam 3.375 GM in Sodium Chloride 0.9% 100 ML IVPB SCH ×4 (00:14→19:34)
[2021-07-28] MEDS: Sodium Chloride 0.9% 1,000 ML IV SCH ×2 (00:15→13:09)
[2021-07-28] MEDS: HYDROcodone/Acetaminophen 10/325 mg Tablet PO PRN ×3 (03:33→16:29)
[2021-07-28 04:47] LABS: #Basophils 0.1 thou/uL (0.0-0.2); #Eosinphils 0.2 thou/uL (0.0-0.7); #Lymphocytes 1.6 thou/uL (1.20-3.40); #Monocytes 0.9 thou/uL (0.11-0.59); #Neutrophils 4.7 thou/uL (1.40-6.50); %Basophils 0.7 % (0.0-1.0); %Eosinophils 2.2 % (0.0-10.0); %Lymphocytes 21.2 % (21.0-51.0); %Monocytes 11.6 % (0.0-10.0); %Neutrophils 64.3 % (42.0-75.0); Hemoglobin 14.5 g/dL (14.0-18.0); Mean Corpuscular HGB CONC 32.6 g/dL (32.0-36.0); Mean Platelet Volume 8.9 fL (7.4-10.4); Platelet Count 219 thou/uL (130-400); RBC Distribution Width 12.2 % (11.5-14.5); Red Blood Cell (RBC) Count 4.69 mill/uL (4.70-6.10); White Blood Cell (WBC) Count 7.3 thou/uL (4.8-10.8)
[2021-07-28 05:02] LABS: Anion Gap 13 mmol/L (10-20); BUN (Urea Nitrogen) 7 mg/dL (8.9-20.6); CRP (Inflammatory) 3.56 mg/dL (= or < 0.5); Calc. Creatinine Clearance 152 mL/min (70-130); Calcium 8.7 mg/dL (7.8-10.44); Carbon Dioxide 23 mmol/L (22-29); Chloride 105 mmol/L (98-107); Glucose 227 mg/dL (70-105); Potassium 3.9 mmol/L (3.5-5.1); Sodium 137 mmol/L (136-145)
[2021-07-28 05:11] LABS: Vancomycin, Trough 16.2 ug/mL
[2021-07-28] MEDS: HumaLOG 300 UNITS/3 ML VIAL SC PRN ×3 (06:16→16:30)
[2021-07-28] MEDS: Vancomycin 1.5 GRAM/300 ML BAG 1.5 GM in Premix Bag 1 BAG IVPB SCH ×3 (06:16→23:05)
[2021-07-28] MEDS: Acetaminophen 325 MG TAB PO PRN ×2 (13:34→21:07)
[2021-07-28] MEDS: Lantus 1000 UNITS/10 ML VIAL SC SCH (21:06)
[2021-07-28] MEDS: Tamsulosin HCl 0.4 MG CAP PO SCH (21:06)
[2021-07-29] MEDS: HYDROcodone/Acetaminophen 10/325 mg Tablet PO PRN ×3 (00:14→18:42)
[2021-07-29] MEDS: Sodium Chloride 0.9% 1,000 ML IV SCH ×3 (01:33→17:21)
[2021-07-29] MEDS: Piperacillin/Tazobactam 3.375 GM in Sodium Chloride 0.9% 100 ML IVPB SCH ×4 (01:34→17:50)
[2021-07-29] MEDS: Vancomycin 1.5 GRAM/300 ML BAG 1.5 GM in Premix Bag 1 BAG IVPB SCH ×2 (05:14→23:03)
[2021-07-29] MEDS: HumaLOG 300 UNITS/3 ML VIAL SC PRN ×3 (05:17→17:51)
[2021-07-29] MEDS: Finasteride 5 MG TAB PO SCH (08:10)
[2021-07-29] MEDS: Lorazepam 0.5 MG TAB PO PRN ×2 (09:28→15:28)
[2021-07-29] MEDS ORDERED: Vancomycin 1.5 GRAM/300 ML BAG 1.5 GM in Premix Bag 1 BAG IVPB SCH (12:00)
[2021-07-29 12:04] LABS: Vancomycin, Trough 2.1 ug/mL
[2021-07-29] MEDS: Tamsulosin HCl 0.4 MG CAP PO SCH (22:36)
[2021-07-29] MEDS: Lantus 1000 UNITS/10 ML VIAL SC SCH (22:36)
[2021-07-29] MEDS: Acetaminophen 325 MG TAB PO PRN (22:36)
[2021-07-30] MEDS: Piperacillin/Tazobactam 3.375 GM in Sodium Chloride 0.9% 100 ML IVPB SCH ×2 (01:20→09:18)
[2021-07-30] MEDS: HYDROcodone/Acetaminophen 10/325 mg Tablet PO PRN ×2 (01:21→11:51)
[2021-07-30] MEDS: Sodium Chloride 0.9% 1,000 ML IV SCH (03:31)
[2021-07-30] MEDS ORDERED: Glimepiride 4 MG TAB PO SCH (08:00)
[2021-07-30] MEDS: Finasteride 5 MG TAB PO SCH (08:18)
[2021-07-30] MEDS: Lorazepam 0.5 MG TAB PO PRN (08:18)
[2021-07-30 09:29] LABS: %Basophils 0.4 % (0.0-1.0); %Eosinophils 2.7 % (0.0-10.0); %Lymphocytes 28.7 % (21.0-51.0); %Monocytes 9.3 % (0.0-10.0); Hemoglobin 14.8 g/dL (14.0-18.0); Mean Corpuscular HGB CONC 34.1 g/dL (32.0-36.0); Mean Corpuscular Hemoglobin 32.2 pg (27.0-31.0); Mean Corpuscular Volume 94.3 fL (78.0-98.0); Mean Platelet Volume 8.7 fL (7.4-10.4); Platelet Count 233 thou/uL (130-400); Red Blood Cell (RBC) Count 4.59 mill/uL (4.70-6.10); White Blood Cell (WBC) Count 5.9 thou/uL (4.8-10.8)
[2021-07-30 09:30] LABS: #Eosinphils 0.2 thou/uL (0.0-0.7); #Lymphocytes 1.7 thou/uL (1.20-3.40); #Monocytes 0.5 thou/uL (0.11-0.59); #Neutrophils 3.5 thou/uL (1.40-6.50)
[2021-07-30 09:48] LABS: Anion Gap 14 mmol/L (10-20); BUN (Urea Nitrogen) 10 mg/dL (8.9-20.6); Calc. Creatinine Clearance 157 mL/min (70-130); Calcium 8.7 mg/dL (7.8-10.44); Carbon Dioxide 22 mmol/L (22-29); Chloride 109 mmol/L (98-107); Glucose 200 mg/dL (70-105); Potassium 3.7 mmol/L (3.5-5.1); Sodium 141 mmol/L (136-145)
[2021-07-30] MEDS: Vancomycin 1.5 GRAM/300 ML BAG 1.5 GM in Premix Bag 1 BAG IVPB SCH (09:49)
[2021-07-30] MEDS: HumaLOG 300 UNITS/3 ML VIAL SC PRN (11:43)
[2021-07-30 14:13] VITALS: BP 120/78; TEMP 97.8
== END 2021-07-30 13:05 | disposition home or self-care (01) | DRG 872 ==
LOC: ERS 16:33 → SURG A 21:40 → OBSVTOIN 07-27 11:00
PROVIDERS: ADMIT Student in an Organized Health Care Education/Training Program; ATTEND Internal Medicine
DX: A41.9 Sepsis, unspecified organism (principal); E87.2 Acidosis; N41.9 Inflammatory disease of prostate, unspecified; E11.9 Type 2 diabetes mellitus without complications; R33.8 Other retention of urine; F17.210 Nicotine dependence, cigarettes, uncomplicated; N31.9 Neuromuscular dysfunction of bladder, unspecified; Z20.822 Contact with and (suspected) exposure to COVID-19; Z98.890 Other specified postprocedural states; Z90.49 Acquired absence of other specified parts of digestive tract; Z71.6 Tobacco abuse counseling; Z87.81 Personal history of (healed) traumatic fracture
CPT/HCPCS: 36415; 36416; 71045; 74177; 80048; 80053; 80202; 81003; 83605; 85025; 85610; 85730; 86140; 86850; 86900; 86901; 87040; 87086; 93005; 94760; 96366; 96367; 96375; 96376; G0378; J0696; J1815; J2250; J2270; J2405; J2543; J3370; J3490; J7050; U0002

== ENCOUNTER 2021-12-06 13:40 | Outpatient (CLI) | payer OTHER | END 2021-12-06 13:41 | disposition home or self-care (01) | LOC: BICCT 13:40 | PROVIDERS: ATTEND Orthopaedic Surgery Orthopaedic Trauma | DX: S32.1 Fracture of sacrum (principal); S32.591K Other specified fracture of right pubis, subsequent encounter for fracture with nonunion | CPT/HCPCS: 72192 ==

== ENCOUNTER 2022-06-07 18:44 | Emergency (ER) | payer SELFPAY | END 2022-06-07 19:43 | disposition left against medical advice (07) | LOC: ERS 18:44 | DX: Z53.21 Procedure and treatment not carried out due to patient leaving prior to being seen by health care provider (principal) | CPT/HCPCS: 93005 ==

== ENCOUNTER 2022-07-11 13:04 | Observation (INO) | payer OTHER, SELFPAY ==
[~2022-07-11 13:04] MED LIST: Iopamidol-370 76% 500 ML 1 ML ONE
[2022-07-11 13:37] LABS: #Basophils 0.1 thou/uL (0.0-0.2); #Eosinphils 0.2 thou/uL (0.0-0.7); #Lymphocytes 2.2 thou/uL (1.20-3.40); #Monocytes 0.5 thou/uL (0.11-0.59); #Neutrophils 4.9 thou/uL (1.40-6.50); %Basophils 0.8 % (0.0-1.0); %Lymphocytes 28.1 % (21.0-51.0); %Monocytes 6.8 % (0.0-10.0); %Neutrophils 62.3 % (42.0-75.0); Hemoglobin 17.9 g/dL (14.0-18.0); Mean Corpuscular Hemoglobin 32.9 pg (27.0-31.0); Mean Corpuscular Volume 94.2 fl (78.0-98.0); Platelet Count 156 10x3/uL (130-400); RBC Distribution Width 12.1 % (11.5-14.5); Red Blood Cell (RBC) Count 5.43 mill/uL (4.70-6.10); White Blood Cell (WBC) Count 7.9 10x3/uL (4.8-10.8)
[2022-07-11 13:50] LABS: INR-International Normal Ratio 0.9; Prothrombin Time 12.5 sec (12.0-14.7)
[2022-07-11 14:03] LABS: ALT (SGPT) 40 U/L (8-55); AST (SGOT) 22 U/L (5-34); Albumin 4.5 g/dL (3.5-5.0); Alkaline Phosphatase 106 U/L (40-110); Anion Gap 16 mmol/L (10-20); BUN (Urea Nitrogen) 12 mg/dL (8.9-20.6); Bilirubin, Total 0.6 mg/dL (0.2-1.2); Calc. Creatinine Clearance 0 mL/min (70-130); Calcium 9.3 mg/dL (7.8-10.44); Carbon Dioxide 22 mmol/L (22-29); Chloride 101 mmol/L (98-107); Estimated GFR 90; Globulin 2.9 g/dL (2.4-3.5); Potassium 3.8 mmol/L (3.5-5.1); Protein, Total 7.4 g/dL (6.0-8.3); Sodium 135 mmol/L (136-145)
[2022-07-11 14:15] LABS: Glucose 410 mg/dL (70-105)
[2022-07-11] MEDS ORDERED: Morphine 4 MG/ML VIAL ONE ×2 (14:16→16:25)
[2022-07-11] MEDS ORDERED: Ondansetron PF 4 MG/2 ML Vial ONE ×2 (14:16→17:25)
[2022-07-11] MEDS ORDERED: cefTRIAXone\\ROCEPHIN 2 GM VIAL ONE (14:27)
[2022-07-11] MEDS ORDERED: VANCOMYCIN 2 GRAM/500 ML BAG 2 GM in Premix Bag 1 BAG IVPB SCH (14:45)
[2022-07-11 15:15] LABS: Bilirubin Negative (Negative); Blood, Urine Negative (Negative); Clarity Clear (Clear); Glucose, Urine (Dipstick) Greater than 1000 mg/dL (Negative); Ketone, Urine 40 mg/dL (Negative); Leukocyte Negative Leu/uL (Negative); Nitrite Negative (Negative); Protein, Urine (Dipstick) Negative (Neg-Trace); Specific Gravity, Urine 1.028 (1.002-1.036); Urobilinogen Normal mg/dL (Less than 2)
[2022-07-11] MEDS ORDERED: Acetaminophen 325 MG TAB PO PRN (17:49)
[2022-07-11 18:48] LABS: SARS-CoV-2 NAA Rapid Test Not Detected (NotDetected)
[2022-07-11] MEDS ORDERED: Dextrose 50% Abboject 50 ML SYRINGE SLOW IVP PRN (19:07)
[2022-07-11] MEDS ORDERED: HumaLOG 300 UNITS/3 ML VIAL SC PRN (19:07)
[2022-07-11] MEDS ORDERED: Dextrose 5% in Water 1,000 ML IV PRN (19:07)
[2022-07-11] MEDS ORDERED: cefTRIAXone\\ROCEPHIN 2 GM in Sodium Chloride 0.9% 100 ML IVPB SCH (19:15)
[2022-07-11 19:24] VITALS: BMI 27.5
[2022-07-11] MEDS ORDERED: Morphine 4 MG/ML VIAL SLOW IVP PRN (19:27)
[2022-07-11] MEDS: Ondansetron ODT 4 MG TAB PO PRN (20:50)
[2022-07-11] MEDS ORDERED: Morphine 2 MG/ML VIAL SLOW IVP PRN (20:57)
[2022-07-11] MEDS ORDERED: Prazosin HCl 1 MG CAP PO SCH ×2 (21:00→21:30)
[2022-07-11] MEDS: HYDROcodone/Acetaminophen 5/325 mg Tablet PO PRN (23:18)
[2022-07-11] MEDS: Vancomycin 1.5 GRAM/300 ML BAG 1.5 GM in Premix Bag 1 BAG IVPB SCH (23:40)
[2022-07-12] MEDS: Ondansetron ODT 4 MG TAB PO PRN ×2 (04:42→10:01)
[2022-07-12] MEDS: HYDROcodone/Acetaminophen 5/325 mg Tablet PO PRN ×3 (04:42→12:56)
[2022-07-12] MEDS: HumaLOG 300 UNITS/3 ML VIAL SC PRN ×2 (05:55→12:57)
[2022-07-12 06:45] LABS: #Eosinphils 0.2 thou/uL (0.0-0.7); #Lymphocytes 1.8 thou/uL (1.20-3.40); #Monocytes 0.5 thou/uL (0.11-0.59); #Neutrophils 3.6 thou/uL (1.40-6.50); %Basophils 0.3 % (0.0-1.0); %Eosinophils 3.2 % (0.0-10.0); %Monocytes 7.3 % (0.0-10.0); %Neutrophils 59.1 % (42.0-75.0); Hemoglobin 14.9 g/dL (14.0-18.0); Mean Corpuscular HGB CONC 33.2 g/dL (32.0-36.0); Mean Corpuscular Hemoglobin 31.5 pg (27.0-31.0); Mean Corpuscular Volume 94.9 fl (78.0-98.0); Mean Platelet Volume 9.7 fL (7.4-10.4); Platelet Count 156 10x3/uL (130-400); Red Blood Cell (RBC) Count 4.74 mill/uL (4.70-6.10); White Blood Cell (WBC) Count 6.1 10x3/uL (4.8-10.8)
[2022-07-12 07:14] LABS: ALT (SGPT) 126 U/L (8-55); AST (SGOT) 90 U/L (5-34); Albumin 3.7 g/dL (3.5-5.0); Alkaline Phosphatase 172 U/L (40-110); Anion Gap 9 mmol/L (10-20); BUN (Urea Nitrogen) 9 mg/dL (8.9-20.6); Bilirubin, Total 0.6 mg/dL (0.2-1.2); Calc. Creatinine Clearance 171 mL/min (70-130); Carbon Dioxide 24 mmol/L (22-29); Chloride 107 mmol/L (98-107); Estimated GFR 114; Globulin 2.4 g/dL (2.4-3.5); Glucose 271 mg/dL (70-105); Potassium 3.7 mmol/L (3.5-5.1); Protein, Total 6.1 g/dL (6.0-8.3); Sodium 136 mmol/L (136-145)
[2022-07-12] MEDS ORDERED: metFORMIN XR 500 MG TAB PO SCH (08:00)
[2022-07-12] MEDS ORDERED: metFORMIN 500 MG TAB PO SCH ×2 (08:15→17:00)
[2022-07-12] MEDS ORDERED: DULoxetine 30 MG CAP PO SCH (09:00)
[2022-07-12] MEDS: Vancomycin 1.5 GRAM/300 ML BAG 1.5 GM in Premix Bag 1 BAG IVPB SCH (10:34)
[2022-07-12] MEDS ORDERED: Metoclopramide 10 MG/10 ML UDCUP PO SCH (12:00)
[2022-07-12] MEDS ORDERED: Tamsulosin HCl 0.4 MG CAP PO SCH (12:00)
[2022-07-12 12:54] VITALS: TEMP 97.9
[2022-07-12] MEDS ORDERED: cefTRIAXone\\ROCEPHIN 2 GM in Sodium Chloride 0.9% 100 ML IVPB SCH ×2 (14:00→19:15)
[2022-07-12 20:55] VITALS: BP 129/78
[2022-07-12] MEDS ORDERED: Prazosin HCl 1 MG CAP PO SCH (21:00)
[2022-07-13] MEDS ORDERED: Tamsulosin HCl 0.4 MG CAP PO SCH (09:00)
== END 2022-07-12 13:21 | disposition home or self-care (01) ==
LOC: ERS 13:04 → T4-B 17:09
PROVIDERS: ADMIT Student in an Organized Health Care Education/Training Program; ATTEND Student in an Organized Health Care Education/Training Program
DX: G89.18 Other acute postprocedural pain (principal); R10.2 Pelvic and perineal pain; E11.65 Type 2 diabetes mellitus with hyperglycemia; K76.0 Fatty (change of) liver, not elsewhere classified; F17.210 Nicotine dependence, cigarettes, uncomplicated; Z79.84 Long term (current) use of oral hypoglycemic drugs; Z79.899 Other long term (current) drug therapy; Z20.822 Contact with and (suspected) exposure to COVID-19
CPT/HCPCS: 36415; 36416; 74177; 80053; 81003; 82010; 83605; 85025; 85610; 85652; 85730; 86140; 87040; 87086; 93005; 94760; 96361; 96365; 96366; 96367; 96372; 96375; 96376; G0378; J0696; J1650; J1815; J2270; J2272; J2405; J3370; Q0162; Q9967

== ENCOUNTER 2022-09-07 13:15 | Emergency (ER) | payer OTHER ==
[2022-09-07] MEDS ORDERED: HYDROcodone/Acetaminophen 10/325 mg Tablet ONE (15:42)
[2022-09-07] MEDS ORDERED: Ketorolac Tromethamine 30 MG/ML VIAL ONE (15:43)
[2022-09-07] MEDS ORDERED: Cyclobenzaprine 10 MG TAB ONE (15:43)
[2022-09-07 15:46] LABS: #Basophils 0.1 thou/uL (0.0-0.2); #Eosinphils 0.4 thou/uL (0.0-0.7); #Lymphocytes 2.2 thou/uL (1.20-3.40); #Monocytes 0.8 thou/uL (0.11-0.59); #Neutrophils 8.3 thou/uL (1.40-6.50); %Basophils 0.9 % (0.0-1.0); %Eosinophils 3.6 % (0.0-10.0); %Lymphocytes 18.3 % (21.0-51.0); %Monocytes 6.7 % (0.0-10.0); %Neutrophils 70.5 % (42.0-75.0); Hemoglobin 19.3 g/dL (14.0-18.0); Mean Corpuscular HGB CONC 35.3 g/dL (32.0-36.0); Mean Corpuscular Hemoglobin 32.4 pg (27.0-31.0); Platelet Count 172 10x3/uL (130-400); RBC Distribution Width 12.1 % (11.5-14.5); Red Blood Cell (RBC) Count 5.94 mill/uL (4.70-6.10); White Blood Cell (WBC) Count 11.8 10x3/uL (4.8-10.8)
[2022-09-07 16:07] LABS: Bilirubin Negative (Negative); Blood, Urine Negative (Negative); Clarity Clear (Clear); Glucose, Urine (Dipstick) Greater than 1000 mg/dL (Negative); Ketone, Urine 10 mg/dL (Negative); Leukocyte Negative Leu/uL (Negative); Nitrite Negative (Negative); Protein, Urine (Dipstick) Negative (Neg-Trace); Specific Gravity, Urine 1.045 (1.002-1.036); Urobilinogen Normal mg/dL (Less than 2); pH, Urine 6.5 (5.0-9.0)
[2022-09-07 16:11] LABS: ALT (SGPT) 25 U/L (8-55); AST (SGOT) 15 U/L (5-34); Albumin 4.9 g/dL (3.5-5.0); Alkaline Phosphatase 106 U/L (40-110); Anion Gap 17 mmol/L (10-20); BUN (Urea Nitrogen) 15 mg/dL (8.9-20.6); Bilirubin, Total 0.4 mg/dL (0.2-1.2); Calc. Creatinine Clearance 0 mL/min (70-130); Calcium 10.3 mg/dL (7.8-10.44); Carbon Dioxide 22 mmol/L (22-29); Chloride 102 mmol/L (98-107); Estimated GFR 86; Globulin 3.2 g/dL (2.4-3.5); Glucose 253 mg/dL (70-105); Protein, Total 8.1 g/dL (6.0-8.3); Sodium 137 mmol/L (136-145)
[2022-09-07] MEDS ORDERED: fentaNYL 50 mcg/mL 1 mL Vial ONE (16:46)
[2022-09-07] MEDS ORDERED: Ondansetron PF 4 MG/2 ML Vial ONE (16:47)
== END 2022-09-07 18:06 | disposition home or self-care (01) ==
LOC: ERS 13:15
DX: M54.50 Low back pain, unspecified (principal); E11.9 Type 2 diabetes mellitus without complications; F17.210 Nicotine dependence, cigarettes, uncomplicated
CPT/HCPCS: 36415; 80053; 81003; 83605; 85025; 85652; 86140; 87040; 96374; 96375; J1885; J2405; J3010

== ENCOUNTER 2022-09-13 10:56 | Emergency (ER) | payer OTHER, SELFPAY ==
[2022-09-13] MEDS ORDERED: Ketorolac Tromethamine 30 MG/ML VIAL ONE (11:20)
[2022-09-13] MEDS ORDERED: HYDROcodone/Acetaminophen 5/325 mg Tablet ONE (12:26)
== END 2022-09-13 12:34 | disposition home or self-care (01) ==
LOC: ERS 10:56
DX: M51.26 Other intervertebral disc displacement, lumbar region (principal)
CPT/HCPCS: 72131; 96372; J1885

== ENCOUNTER 2022-12-15 10:59 | Emergency (ER) | payer OTHER, SELFPAY ==
[2022-12-15] MEDS ORDERED: Diazepam 5 MG TAB ONE (12:18)
[2022-12-15 12:35] LABS: #Basophils 0.1 thou/uL (0.0-0.2); #Eosinphils 0.1 thou/uL (0.0-0.7); #Monocytes 0.9 thou/uL (0.11-0.59); #Neutrophils 11.3 thou/uL (1.40-6.50); %Basophils 0.9 % (0.0-1.0); %Eosinophils 0.5 % (0.0-10.0); %Lymphocytes 11.9 % (21.0-51.0); %Monocytes 6.2 % (0.0-10.0); %Neutrophils 79.2 % (42.0-75.0); Mean Corpuscular HGB CONC 34.5 g/dL (32.0-36.0); Mean Corpuscular Hemoglobin 31.5 pg (27.0-31.0); Mean Corpuscular Volume 91.4 fl (78.0-98.0); Mean Platelet Volume 11.1 fL (7.4-10.4); Platelet Count 250 10x3/uL (130-400); RBC Distribution Width 13.1 % (11.5-14.5); Red Blood Cell (RBC) Count 5.71 mill/uL (4.70-6.10); White Blood Cell (WBC) Count 14.3 10x3/uL (4.8-10.8)
[2022-12-15 12:56] LABS: Acetaminophen Less than 10 mcg/mL (10.0-30.0); Alcohol Less than 10.0 mg/dL (Less than 10); Salicylate Less than 8.0 mg/dL (15.0-30.0)
[2022-12-15 12:59] LABS: ALT (SGPT) 17 U/L (8-55); AST (SGOT) 12 U/L (5-34); Albumin 4.8 g/dL (3.5-5.0); Alkaline Phosphatase 93 U/L (40-110); Anion Gap 16 mmol/L (10-20); BUN (Urea Nitrogen) 16 mg/dL (8.9-20.6); Bilirubin, Total 0.4 mg/dL (0.2-1.2); CK (CPK) 48 U/L (30-200); Calc. Creatinine Clearance 0 mL/min (70-130); Calcium 9.8 mg/dL (7.8-10.44); Carbon Dioxide 22 mmol/L (22-29); Chloride 107 mmol/L (98-107); Estimated GFR 102; Globulin 3.1 g/dL (2.4-3.5); Glucose 127 mg/dL (70-105); Potassium 3.9 mmol/L (3.5-5.1); Protein, Total 7.9 g/dL (6.0-8.3); Sodium 141 mmol/L (136-145)
[2022-12-15 13:27] LABS: Amphetamine Not Detected (NotDetected); Barbiturates Screen Not Detected (NotDetected); Benzodiazepine Screen Not Detected (NotDetected); Cocaine Metabolite Screen Not Detected (NotDetected); Methadone Not Detected (NotDetected); Methamphetamine Not Detected (NotDetected); Opiate Screen Not Detected (NotDetected); Oxycodone Screen Not Detected (NotDetected); Phencyclidine (PCP) Not Detected (NotDetected); THC/Cannabinoid Screen Detected (NotDetected); Tricyclic Screen Not Detected (NotDetected)
== END 2022-12-15 13:42 | disposition home or self-care (01) ==
LOC: ERS 10:59
DX: F43.0 Acute stress reaction (principal); F41.9 Anxiety disorder, unspecified; E11.9 Type 2 diabetes mellitus without complications; F17.210 Nicotine dependence, cigarettes, uncomplicated
CPT/HCPCS: 36415; 80053; 80306; 80307; 82550; 84443; 84484; 85025; 93005

== ENCOUNTER 2023-01-01 10:28 | Emergency (ER) | payer OTHER, SELFPAY ==
[2023-01-01] MEDS ORDERED: Ibuprofen 800 MG TAB ONE (11:25)
[2023-01-01] MEDS ORDERED: HYDROcodone/Acetaminophen 5/325 mg Tablet ONE (11:25)
== END 2023-01-01 12:14 | disposition home or self-care (01) ==
LOC: ERS 10:28
DX: S90.31XA Contusion of right foot, initial encounter (principal); E11.9 Type 2 diabetes mellitus without complications; I10 Essential (primary) hypertension; E78.5 Hyperlipidemia, unspecified; F17.210 Nicotine dependence, cigarettes, uncomplicated; W18.30XA Fall on same level, unspecified, initial encounter; Z79.899 Other long term (current) drug therapy

== ENCOUNTER 2023-04-17 08:12 | Emergency (ER) | payer SELFPAY ==
[2023-04-17] MEDS ORDERED: Ipratropium/Albuterol 3 ML NEB ONE (08:45)
== END 2023-04-17 13:07 | disposition home or self-care (01) ==
LOC: ERS 08:12
DX: J20.9 Acute bronchitis, unspecified (principal); E11.9 Type 2 diabetes mellitus without complications; I10 Essential (primary) hypertension; E78.5 Hyperlipidemia, unspecified; Z79.899 Other long term (current) drug therapy
CPT/HCPCS: 71045; 94640; J7620

== ENCOUNTER 2023-10-17 07:47 | Emergency (ER) | payer OTHER, SELFPAY | END 2023-10-17 08:20 | disposition left against medical advice (07) | LOC: ERS 07:47 | DX: R10.31 Right lower quadrant pain (principal); E11.9 Type 2 diabetes mellitus without complications; F17.210 Nicotine dependence, cigarettes, uncomplicated | CPT/HCPCS: 99283 ==

== ENCOUNTER 2024-02-07 17:55 | Emergency (ER) | payer BC, SELFPAY ==
[2024-02-07 19:02] LABS: #Basophils 0.05 10x3/uL (0.0-0.2); %Basophils 0.4 % (0.0-1.0); %Eosinophils 0.5 % (0.0-10.0); %Lymphocytes 9.2 % (21.0-51.0); %Monocytes 11.4 % (0.0-10.0); Hematocrit 45.4 % (42.0-52.0); Mean Corpuscular HGB CONC 35.2 g/dL (32.0-36.0); Mean Corpuscular Hemoglobin 32.1 pg (27.0-31.0); Mean Corpuscular Volume 91.2 fL (78.0-98.0); Platelet Count 159 10x3/uL (130-400); RBC Distribution Width 12.6 % (11.5-14.5); Red Blood Cell (RBC) Count 4.98 mill/uL (4.70-6.10)
[2024-02-07 19:19] LABS: ALT (SGPT) 15 U/L (8-55); AST (SGOT) 15 U/L (5-34); Albumin 3.6 g/dL (3.5-5.0); Alkaline Phosphatase 77 U/L (40-110); Anion Gap 15 mmol/L (10-20); BUN (Urea Nitrogen) 8 mg/dL (8.9-20.6); Bilirubin, Total 0.5 mg/dL (0.2-1.2); Calc. Creatinine Clearance 0 mL/min (70-130); Calcium 9.4 mg/dL (7.8-10.44); Carbon Dioxide 27 mmol/L (22-29); Chloride 91 mmol/L (98-107); Estimated GFR 86; Glucose 194 mg/dL (70-105); Potassium 3.4 mmol/L (3.5-5.1); Protein, Total 7.6 g/dL (6.0-8.3); Sodium 130 mmol/L (136-145)
[2024-02-07] MEDS ORDERED: Ketorolac Tromethamine 30 MG (1 mL) VIAL ONE (19:26)
[2024-02-07] MEDS ORDERED: Acetaminophen 500 MG TAB ONE (19:26)
[2024-02-07] MEDS ORDERED: Ondansetron PF 4 MG/2 ML Vial ONE (19:26)
[2024-02-07] MEDS ORDERED: Benzonatate 100 MG CAP ONE (19:47)
[2024-02-07 20:03] LABS: Troponin I 0.012 ng/mL (< 0.028)
[2024-02-07 20:55] LABS: Influenza A by NAA Not Detected (NotDetected); Influenza B by NAA Not Detected (NotDetected); SARS-CoV-2 NAA Rapid Test Not Detected (NotDetected)
[2024-02-07 21:55] LABS: Lactic Acid 0.74 mmol/L (0.5-2.2)
== END 2024-02-07 22:41 | disposition home or self-care (01) ==
LOC: ERS 17:55
DX: J06.9 Acute upper respiratory infection, unspecified (principal); R11.0 Nausea; E11.9 Type 2 diabetes mellitus without complications; F17.210 Nicotine dependence, cigarettes, uncomplicated
CPT/HCPCS: 36415; 71045; 80053; 83605; 84484; 85025; 87040; 87077; 93005; 96361; 96374; 96375; J1885; J2405